=== PATIENT | male | born 1970 | race Two or more races ===

== ENCOUNTER 2021-03-10 12:16 | Emergency (ER) | payer OTHER ==
[2021-03-10] MEDS ORDERED: SODIUM CHLORIDE 0.9% 1,000ML IVBOLUS ONE (13:00)
[2021-03-10] MEDS ORDERED: SODIUM CHLORIDE FLUSH 10ML SYR IVF ONE (13:00)
--- NOTE | 2021-03-10 13:03 | NUR ---
PT SITTING UP IN BED, AOX4. NAD NOTED AT THIS TIME. RESPIRATIONS EVEN AND UNLABORED ON RA. FAMILY AT BEDSIDE. PT DENIES PAIN AT THIS TIME.
[2021-03-10 13:13] LABS: BASOPHILS % (AUTO) 0 % (0-1); EOSINOPHILS % (AUTO) 0 % (1-7); LYMPHOCYTES % (AUTO) 15 % (22-44); MEAN CORPUSCULAR HGB CONC 35.5 g/dL (33.2-36.2); MONOCYTES % (AUTO) 5 % (2-9); NEUTROPHILS % (AUTO) 80 % (42-75); PLATELET COUNT 138 x10^3/uL (130-400); RED BLOOD COUNT 4.84 x10^6/uL (4.38-5.82)
[2021-03-10 13:23] LABS: ALBUMIN 3.1 g/dL (3.4-5.0); ANION GAP 9 mmol/L (5-15); CALCIUM 7.5 mg/dL (8.5-10.1); CHLORIDE 101 mmol/L (98-107); CREATININE 1.08 mg/dL (0.7-1.3)
[2021-03-10 13:27] LABS: TROPONIN I < 0.015 ng/mL (0.000-0.045)
--- NOTE | 2021-03-10 14:15 | NUR ---
PT RESTING RECLINED IN BED. NAD NOTED AT THIS TIME. RESPIRATIONS EVEN AND UNLABORED ON RA. CALL LIGHT IN REACH, RAILS UP. AND CHILDREN AT BEDSIDE.
[2021-03-10] MEDS ORDERED: NEOSPORIN OINT. PKT 1 PACKET ONE (15:26)
[2021-03-10] MEDS ORDERED: DIPH,PERTUSS(ACELL),TET VAC/PF 0.5 ML IM-VACC ONE ×2 (15:26→15:30)
[2021-03-10 15:34] VITALS: BP 117/68
== END 2021-03-10 15:36 | disposition home or self-care (01) ==
LOC: ED 12:57
DX: U07.1 COVID-19 (principal); S00.81XA Abrasion of other part of head, initial encounter; R55 Syncope and collapse; B34.9 Viral infection, unspecified; E86.0 Dehydration; R07.9 Chest pain, unspecified; I10 Essential (primary) hypertension; X58.XXXA Exposure to other specified factors, initial encounter; Y93.89 Activity, other specified; Y92.89 Other specified places as the place of occurrence of the external cause; Y99.8 Other external cause status
CPT/HCPCS: 36415; 71045; 80048; 82040; 84484; 85025; 90471; 90715; 93005; 96360; 96361; 99285; J7030; U0003; U0005

== ENCOUNTER 2021-03-20 10:56 | Inpatient (IN) | payer OTHER ==
[2021-03-19] MEDS: SODIUM CHLORIDE 0.9% 1,000 ML IV SCH (23:00)
[~2021-03-20] VITALS: Ht 172.7 cm; Wt 102.1 kg
--- NOTE | 2021-03-20 11:06 | NUR ---
RA SAT 83%, OXYGEN VIA NC PLACED AT 5 LITERS. EKG TRIAGE.
[2021-03-20] MEDS ORDERED: DEXAMETHASONE 4 MG/ML, 1ML IV ONE (11:30)
[2021-03-20] MEDS ORDERED: DEXAMETHASONE 4 MG/ML, 1ML ONE (11:40)
--- NOTE | 2021-03-20 12:00 | NUR ---
RANJIT [phone]
[2021-03-20] MEDS ORDERED: LISI-170 PO (12:13)
[2021-03-20 12:21] LABS: BASOPHILS % (AUTO) 1 % (0-1); EOSINOPHILS % (AUTO) 1 % (1-7); LYMPHOCYTES % (AUTO) 8 % (22-44); MEAN CORPUSCULAR HEMOGLOBIN 29.4 pg (27.5-34.5); MEAN CORPUSCULAR HGB CONC 34.8 g/dL (33.2-36.2); MONOCYTES % (AUTO) 5 % (2-9); NEUTROPHILS % (AUTO) 85 % (42-75); PLATELET COUNT 375 x10^3/uL (130-400); RED BLOOD COUNT 4.37 x10^6/uL (4.38-5.82)
[2021-03-20 12:23] LABS: PLATELET (DIC) 371 x10^3/uL (130-400)
[2021-03-20 12:32] LABS: ALBUMIN 2.1 g/dL (3.4-5.0); ANION GAP 10 mmol/L (5-15); CALCIUM 7.5 mg/dL (8.5-10.1); CHLORIDE 100 mmol/L (98-107); CREATININE 0.74 mg/dL (0.7-1.3)
[2021-03-20 12:38] LABS: ALANINE AMINOTRANSFERASE 64 U/L (12-78); ALKALINE PHOSPHATASE 257 U/L (45-117); BILIRUBIN,TOTAL 1.1 mg/dL (0.2-1.0); TOTAL PROTEIN 7.9 g/dL (6.4-8.2)
[2021-03-20 12:39] LABS: C-REACTIVE PROTEIN, QUANT > 19.00 mg/dL (0.02-0.49)
[2021-03-20 12:48] LABS: D-DIMER (DIC) 28.96 ug/mlFEU (0.00-0.52); PROTIME 13.1 Seconds (9.6-11.5); PTT 28 Seconds (25-31)
[2021-03-20 12:50] LABS: FIBRINOGEN > 713 mg/dL (200-340)
[2021-03-20] MEDS ORDERED: POTASSIUM CHLORIDE 40 MEQ in SODIUM CHLORIDE 0.9% 500 ML IV ONE (13:00)
[2021-03-20] MEDS ORDERED: CEFTRIAXONE 1,000 MG in DEXTROSE 5% 50 ML IVPB ONE (13:00)
[2021-03-20] MEDS ORDERED: morphine SULFATE 10 MG/ML, 1ML IVPush PRN (13:30)
[2021-03-20] MEDS ORDERED: REMDESIVIR 200 MG in SODIUM CHLORIDE 0.9% 250 ML IVPB ONE (13:30)
[2021-03-20] MEDS ORDERED: ENOXAPARIN 40 MG/0.4 ML SQ SCH (13:30)
[2021-03-20] MEDS: DOXYCYCLINE 100 MG in DEXTROSE 5% 250 ML IV SCH (13:31)
[2021-03-20] MEDS: ENOXAPARIN 30 MG/0.3 ML SQ SCH ×2 (14:00→21:00)
--- NOTE | 2021-03-20 14:15 | NUR ---
task rn note: pt taken to imaging. iv started with potassium infusing.
--- NOTE | 2021-03-20 14:26 | NUR ---
RECEIVED REPORT FROM FAVIOLA MAO. ASSUMING CARE AT THIS TIME. PT AT CT. PER REPORT PT COVID + 9 DAYS AGO.
[2021-03-20] MEDS ORDERED: OMNIPAQUE 350 MG/ML, 100ML BOTTLE ONE (14:29)
--- NOTE | 2021-03-20 15:03 | NUR ---
PT BACK FROM CT. PT POSITIONED FOR COMFORT. IV POTASSIUM INFUSING.
--- NOTE | 2021-03-20 17:00 | NUR ---
PT TO BE HOLD IN ED WHILE WAITING FOR ADMIT BED. DIET TRAY DELIVERED.
--- NOTE | 2021-03-20 18:58 | NUR ---
Report from Veda MAO
--- NOTE | 2021-03-20 20:11 | NUR ---
Pt moved onto hospital bed for comfort
--- NOTE | 2021-03-20 21:37 | NUR ---
pt provided juice and water per request
--- NOTE | 2021-03-20 22:43 | NUR ---
Report to Susie MAO
[2021-03-21 00:47] VITALS: BP 122/54
[2021-03-21] MEDS: DOXYCYCLINE 100 MG in DEXTROSE 5% 250 ML IV SCH ×2 (02:27→15:08)
[2021-03-21] MEDS: SODIUM CHLORIDE 0.9% 1,000 ML IV SCH ×2 (02:27→15:07)
[2021-03-21 05:30] LABS: BASOPHILS % (AUTO) 0 % (0-1); EOSINOPHILS % (AUTO) 0 % (1-7); LYMPHOCYTES % (AUTO) 6 % (22-44); MEAN CORPUSCULAR HEMOGLOBIN 29.5 pg (27.5-34.5); MEAN CORPUSCULAR HGB CONC 34.9 g/dL (33.2-36.2); MEAN PLATELET VOLUME 6.5 fL (7.4-10.4); MONOCYTES % (AUTO) 5 % (2-9); NEUTROPHILS % (AUTO) 88 % (42-75); PLATELET COUNT 332 x10^3/uL (130-400); RED BLOOD COUNT 4.06 x10^6/uL (4.38-5.82); RED CELL DISTRIBUTION WIDTH 14.2 % (9.4-14.8)
[2021-03-21 05:40] LABS: ALBUMIN 1.9 g/dL (3.4-5.0); ANION GAP 8 mmol/L (5-15); CALCIUM 7.9 mg/dL (8.5-10.1); CHLORIDE 104 mmol/L (98-107)
[2021-03-21 05:44] LABS: ALANINE AMINOTRANSFERASE 61 U/L (12-78); ALKALINE PHOSPHATASE 225 U/L (45-117); BILIRUBIN,TOTAL 0.7 mg/dL (0.2-1.0); CREATININE 0.65 mg/dL (0.7-1.3); TOTAL PROTEIN 7.3 g/dL (6.4-8.2)
[2021-03-21 08:44] VITALS: BP 135/92
[2021-03-21] MEDS: DEXAMETHASONE 1 MG TABLET PO SCH (09:00)
[2021-03-21] MEDS ORDERED: DEXAMETHASONE 4 MG TABLET ONE (09:15)
[2021-03-21] MEDS: ENOXAPARIN 30 MG/0.3 ML SQ SCH ×2 (09:23→21:53)
[2021-03-21] MEDS: REMDESIVIR 100 MG in SODIUM CHLORIDE 0.9% 250 ML IVPB SCH (13:01)
[2021-03-21 14:55] VITALS: BP 128/80
[2021-03-21 15:24] VITALS: BP 132/84
[2021-03-21] MEDS: ASCORBIC ACID 500 MG TABLET PO SCH (18:29)
[2021-03-21 18:30] VITALS: BP 139/88
[2021-03-21] MEDS: MELATONIN 5 MG TABLET PO SCH (21:53)
[2021-03-21] MEDS: THIAMINE 100MG TABLET PO SCH (21:53)
[2021-03-22] MEDS: DOXYCYCLINE 100 MG in DEXTROSE 5% 250 ML IV SCH ×2 (01:57→14:34)
[2021-03-22] MEDS: SODIUM CHLORIDE 0.9% 1,000 ML IV SCH ×3 (01:57→18:16)
[2021-03-22 02:10] VITALS: BP 131/92
[2021-03-22 05:57] LABS: ALANINE AMINOTRANSFERASE 56 U/L (12-78); ALBUMIN 1.7 g/dL (3.4-5.0); ANION GAP 7 mmol/L (5-15); CALCIUM 7.5 mg/dL (8.5-10.1); CHLORIDE 108 mmol/L (98-107); CREATININE 0.52 mg/dL (0.7-1.3)
[2021-03-22 06:00] LABS: ALKALINE PHOSPHATASE 176 U/L (45-117); BILIRUBIN,TOTAL 0.5 mg/dL (0.2-1.0); TOTAL PROTEIN 6.4 g/dL (6.4-8.2)
[2021-03-22] MEDS: PANTOPRAZOLE 40MG TABLET PO SCH (06:05)
[2021-03-22 08:27] VITALS: BP 132/88
[2021-03-22] MEDS: THIAMINE 100MG TABLET PO SCH ×2 (08:32→21:56)
[2021-03-22] MEDS: ZINC SULFATE 220 MG CAPSULE PO SCH (08:32)
[2021-03-22] MEDS: DEXAMETHASONE 1 MG TABLET PO SCH (08:32)
[2021-03-22] MEDS: ASCORBIC ACID 500 MG TABLET PO SCH ×2 (08:32→18:16)
[2021-03-22] MEDS: ENOXAPARIN 30 MG/0.3 ML SQ SCH ×2 (08:33→21:57)
[2021-03-22] MEDS: CHOLECALCIFEROL 1,000 UNIT TABLET PO SCH (08:33)
[2021-03-22 14:39] VITALS: BP 136/93
[2021-03-22] MEDS: REMDESIVIR 100 MG in SODIUM CHLORIDE 0.9% 250 ML IVPB SCH (15:42)
[2021-03-22 20:15] VITALS: BP 147/83
[2021-03-22] MEDS: MELATONIN 5 MG TABLET PO SCH (21:00)
[2021-03-22 22:08] VITALS: BP 137/89
[2021-03-23] MEDS: DOXYCYCLINE 100 MG in DEXTROSE 5% 250 ML IV SCH (02:36)
[2021-03-23 02:44] VITALS: BP 143/98
[2021-03-23] MEDS: PANTOPRAZOLE 40MG TABLET PO SCH (05:48)
[2021-03-23] MEDS: SODIUM CHLORIDE 0.9% 1,000 ML IV SCH (05:49)
[2021-03-23 08:53] VITALS: BP 144/94
[2021-03-23] MEDS: CHOLECALCIFEROL 1,000 UNIT TABLET PO SCH (09:25)
[2021-03-23] MEDS: ASCORBIC ACID 500 MG TABLET PO SCH ×2 (09:25→16:04)
[2021-03-23] MEDS: DEXAMETHASONE 1 MG TABLET PO SCH (09:25)
[2021-03-23] MEDS: THIAMINE 100MG TABLET PO SCH ×2 (09:25→21:17)
[2021-03-23] MEDS: ZINC SULFATE 220 MG CAPSULE PO SCH (09:25)
[2021-03-23] MEDS: ENOXAPARIN 30 MG/0.3 ML SQ SCH ×2 (09:26→21:00)
[2021-03-23 10:11] LABS: ALANINE AMINOTRANSFERASE 48 U/L (12-78); ALKALINE PHOSPHATASE 174 U/L (45-117); ANION GAP 10 mmol/L (5-15); BILIRUBIN,TOTAL 0.8 mg/dL (0.2-1.0); CALCIUM 7.8 mg/dL (8.5-10.1); CHLORIDE 103 mmol/L (98-107); CREATININE 0.62 mg/dL (0.7-1.3); TOTAL PROTEIN 7.2 g/dL (6.4-8.2)
[2021-03-23] MEDS: DOXYCYCLINE 100MG TABLET PO SCH ×2 (13:00→23:39)
[2021-03-23] MEDS: FUROSEMIDE 20 MG/2 ML IV SCH (13:00)
[2021-03-23 14:00] VITALS: BP 117/81
[2021-03-23] MEDS: REMDESIVIR 100 MG in SODIUM CHLORIDE 0.9% 250 ML IVPB SCH (16:04)
[2021-03-23 19:52] VITALS: BP 119/80
[2021-03-23] MEDS: MELATONIN 5 MG TABLET PO SCH (21:19)
[2021-03-24 02:23] VITALS: BP 121/79
[2021-03-24] MEDS: PANTOPRAZOLE 40MG TABLET PO SCH (06:06)
[2021-03-24 06:15] LABS: BASOPHILS % (AUTO) 0 % (0-1); EOSINOPHILS % (AUTO) 1 % (1-7); LYMPHOCYTES % (AUTO) 14 % (22-44); MEAN CORPUSCULAR HEMOGLOBIN 29.5 pg (27.5-34.5); MEAN CORPUSCULAR HGB CONC 34.1 g/dL (33.2-36.2); MEAN PLATELET VOLUME 6.8 fL (7.4-10.4); MONOCYTES % (AUTO) 9 % (2-9); NEUTROPHILS % (AUTO) 77 % (42-75); PLATELET COUNT 236 x10^3/uL (130-400); RED BLOOD COUNT 4.14 x10^6/uL (4.38-5.82); RED CELL DISTRIBUTION WIDTH 14.8 % (9.4-14.8)
[2021-03-24 06:26] LABS: ALANINE AMINOTRANSFERASE 43 U/L (12-78); ALBUMIN 1.9 g/dL (3.4-5.0); ANION GAP 7 mmol/L (5-15); CALCIUM 7.8 mg/dL (8.5-10.1); CHLORIDE 105 mmol/L (98-107); CREATININE 0.63 mg/dL (0.7-1.3)
[2021-03-24 06:35] LABS: ALKALINE PHOSPHATASE 143 U/L (45-117); BILIRUBIN,TOTAL 0.6 mg/dL (0.2-1.0); TOTAL PROTEIN 6.8 g/dL (6.4-8.2)
[2021-03-24 08:27] VITALS: BP 127/83
[2021-03-24] MEDS: ENOXAPARIN 30 MG/0.3 ML SQ SCH ×2 (09:00→20:47)
[2021-03-24 09:11] LABS: D-DIMER 17.56 ug/mlFEU (0.00-0.52)
[2021-03-24] MEDS ORDERED: FUROSEMIDE 40 MG/4 ML IV ONE (09:30)
[2021-03-24] MEDS: FUROSEMIDE 20 MG/2 ML IV SCH (09:48)
[2021-03-24] MEDS: CHOLECALCIFEROL 1,000 UNIT TABLET PO SCH (09:49)
[2021-03-24] MEDS: DEXAMETHASONE 1 MG TABLET PO SCH (09:49)
[2021-03-24] MEDS: THIAMINE 100MG TABLET PO SCH ×2 (09:49→20:47)
[2021-03-24] MEDS: ZINC SULFATE 220 MG CAPSULE PO SCH (09:49)
[2021-03-24] MEDS: ASCORBIC ACID 500 MG TABLET PO SCH ×2 (09:50→16:31)
[2021-03-24] MEDS ORDERED: ACETAMINOPHEN 500 MG TABLET ONE (11:42)
[2021-03-24] MEDS: DOXYCYCLINE 100MG TABLET PO SCH ×2 (11:50→23:59)
[2021-03-24] MEDS: ACETAMINOPHEN 500 MG TABLET PO PRN (11:51)
[2021-03-24 12:32] VITALS: BP 111/74
[2021-03-24] MEDS: REMDESIVIR 100 MG in SODIUM CHLORIDE 0.9% 250 ML IVPB SCH (16:23)
[2021-03-24 18:47] VITALS: BP 110/76
[2021-03-24] MEDS: MELATONIN 5 MG TABLET PO SCH (20:47)
[2021-03-25 00:32] VITALS: BP 116/79
[2021-03-25] MEDS: ACETAMINOPHEN 500 MG TABLET PO PRN (00:37)
[2021-03-25 05:13] LABS: BASOPHILS % (AUTO) 0 % (0-1); EOSINOPHILS % (AUTO) 1 % (1-7); LYMPHOCYTES % (AUTO) 13 % (22-44); MEAN CORPUSCULAR HEMOGLOBIN 28.7 pg (27.5-34.5); MEAN CORPUSCULAR HGB CONC 33.3 g/dL (33.2-36.2); MEAN PLATELET VOLUME 6.6 fL (7.4-10.4); MONOCYTES % (AUTO) 9 % (2-9); NEUTROPHILS % (AUTO) 77 % (42-75); PLATELET COUNT 246 x10^3/uL (130-400); RED BLOOD COUNT 4.27 x10^6/uL (4.38-5.82); RED CELL DISTRIBUTION WIDTH 14.5 % (9.4-14.8)
[2021-03-25 05:24] LABS: ANION GAP 6 mmol/L (5-15); CALCIUM 8.3 mg/dL (8.5-10.1); CHLORIDE 102 mmol/L (98-107)
[2021-03-25 05:28] LABS: CREATININE 0.66 mg/dL (0.7-1.3)
[2021-03-25] MEDS: PANTOPRAZOLE 40MG TABLET PO SCH (05:52)
[2021-03-25 08:34] VITALS: BP 112/75
[2021-03-25] MEDS: THIAMINE 100MG TABLET PO SCH ×2 (09:00→21:18)
[2021-03-25] MEDS: FUROSEMIDE 20 MG/2 ML IV SCH (10:16)
[2021-03-25] MEDS: ENOXAPARIN 30 MG/0.3 ML SQ SCH ×2 (10:17→21:19)
[2021-03-25] MEDS: CHOLECALCIFEROL 1,000 UNIT TABLET PO SCH (10:18)
[2021-03-25] MEDS: ASCORBIC ACID 500 MG TABLET PO SCH ×2 (10:18→17:12)
[2021-03-25] MEDS: ZINC SULFATE 220 MG CAPSULE PO SCH (10:19)
[2021-03-25] MEDS: DEXAMETHASONE 1 MG TABLET PO SCH (10:20)
[2021-03-25] MEDS: DOXYCYCLINE 100MG TABLET PO SCH ×2 (11:59→23:59)
[2021-03-25 14:00] VITALS: BP 108/76
[2021-03-25] MEDS ORDERED: FUROSEMIDE 20 MG/2 ML IV ONE (16:00)
[2021-03-25 20:20] VITALS: BP 112/74
[2021-03-25] MEDS: MELATONIN 5 MG TABLET PO SCH (21:19)
[2021-03-26 00:29] VITALS: BP 115/74
[2021-03-26 04:07] LABS: CALCIUM 8.1 mg/dL (8.5-10.1); CREATININE 0.71 mg/dL (0.7-1.3)
[2021-03-26 04:16] LABS: ANION GAP 5 mmol/L (5-15); CHLORIDE 102 mmol/L (98-107)
[2021-03-26] MEDS: PANTOPRAZOLE 40MG TABLET PO SCH (05:57)
[2021-03-26] MEDS: ENOXAPARIN 30 MG/0.3 ML SQ SCH ×2 (09:00→22:10)
[2021-03-26 10:00] VITALS: BP 106/74
[2021-03-26] MEDS: FUROSEMIDE 20 MG/2 ML IV SCH (10:06)
[2021-03-26] MEDS: DEXAMETHASONE 1 MG TABLET PO SCH (10:06)
[2021-03-26] MEDS: THIAMINE 100MG TABLET PO SCH ×2 (10:07→22:09)
[2021-03-26] MEDS: ZINC SULFATE 220 MG CAPSULE PO SCH (10:08)
[2021-03-26] MEDS: CHOLECALCIFEROL 1,000 UNIT TABLET PO SCH (10:08)
[2021-03-26] MEDS: ASCORBIC ACID 500 MG TABLET PO SCH ×2 (10:09→18:08)
[2021-03-26] MEDS: ACETAMINOPHEN 500 MG TABLET PO PRN (10:16)
[2021-03-26] MEDS: DOXYCYCLINE 100MG TABLET PO SCH (13:01)
[2021-03-26 16:30] VITALS: BP 111/76
[2021-03-26 22:03] VITALS: BP 106/78
[2021-03-26 22:06] VITALS: BP 108/81
[2021-03-26] MEDS: MELATONIN 5 MG TABLET PO SCH (22:10)
[2021-03-27] MEDS: DOXYCYCLINE 100MG TABLET PO SCH ×2 (00:44→12:20)
[2021-03-27 00:45] VITALS: BP 98/63
[2021-03-27 00:48] VITALS: BP 109/74
[2021-03-27] MEDS: ACETAMINOPHEN 500 MG TABLET PO PRN (06:32)
[2021-03-27] MEDS: PANTOPRAZOLE 40MG TABLET PO SCH (06:32)
[2021-03-27 06:33] VITALS: BP 122/90
[2021-03-27] MEDS: ENOXAPARIN 30 MG/0.3 ML SQ SCH (09:00)
[2021-03-27] MEDS: CHOLECALCIFEROL 1,000 UNIT TABLET PO SCH (09:13)
[2021-03-27] MEDS: ASCORBIC ACID 500 MG TABLET PO SCH ×2 (09:13→17:43)
[2021-03-27] MEDS: THIAMINE 100MG TABLET PO SCH (09:13)
[2021-03-27] MEDS: ZINC SULFATE 220 MG CAPSULE PO SCH (09:13)
[2021-03-27] MEDS: DEXAMETHASONE 1 MG TABLET PO SCH (09:13)
[2021-03-27] MEDS: FUROSEMIDE 20 MG/2 ML IV SCH (09:14)
[2021-03-27] MEDS ORDERED: DEXA1TAB5 PO (13:35)
[2021-03-27] MEDS ORDERED: AMOX1TAB64 PO (13:35)
[2021-03-27] MEDS ORDERED: THIA100T67 PO (13:35)
[2021-03-27] MEDS ORDERED: ACET-1600 PO (13:35)
[2021-03-27] MEDS ORDERED: ASPI325T20 PO (13:35)
[2021-03-27] MEDS ORDERED: ASCO500T9 PO (13:35)
[2021-03-27] MEDS ORDERED: CHOL10003 PO (13:35)
[2021-03-27] MEDS ORDERED: PANT40TA6 PO (13:35)
[2021-03-27] MEDS ORDERED: MELA5TAB14 PO (13:35)
[2021-03-27] MEDS ORDERED: ZINC220C8 PO (13:35)
[2021-03-27 15:47] LABS: O2 FLOW ROOM AIR L/min
== END 2021-03-27 17:48 | disposition home health service (06) | DRG 177 ==
LOC: ED 12:43 → EDIP 12:51 → 4WST 23:45
PROVIDERS: ADMIT Hospitalist; ATTEND Internal Medicine
PROC: XW033E5 Introduction of Remdesivir Anti-infective into Peripheral Vein, Percutaneous Approach, New Technology Group 5 (ICD-10-PCS; principal; 2021-03-21)
DX: U07.1 COVID-19 (principal); J12.82 Pneumonia due to coronavirus disease 2019; J96.01 Acute respiratory failure with hypoxia; D68.69 Other thrombophilia; E87.1 Hypo-osmolality and hyponatremia; E86.0 Dehydration; E86.1 Hypovolemia; E87.6 Hypokalemia; I10 Essential (primary) hypertension; Z79.82 Long term (current) use of aspirin; Z79.899 Other long term (current) drug therapy
CPT/HCPCS: 36415; 36600; 71045; 71275; 80048; 80053; 82728; 82803; 83605; 83615; 83735; 84100; 84145; 85025; 85049; 85379; 85384; 85610; 85730; 86140; 87040; 93005; 96374; 96375; G0378; J0696; J1100; J1650; J1940; J3480; J7060; Q9967; J2270; J7030; J7040; J7050